=== PATIENT | female | born 2000 | race Hispanic/Latino ===

== ENCOUNTER 2025-02-17 00:15 | Emergency (ER) | payer SELFPAY ==
--- OUTSIDE RECORDS SUMMARY | 2025-02-17 00:18 | XMS REPORT | Continuity of Care Document ---
Author Name Unknown Address [address] [place] [address] [facility] Address 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 Ordering Clinician Indication Dosage Frequency Signature (SIG) Comments Components Source cyclobenzap rine 5 mg tablet 01-14 00:00: 00 Yes 1mg Evgeny Munson prednisone 50 mg tablet 01-14 00:00: 00 Yes 1mg Evgeny F Arpit diclofenac potassium 50 mg tablet 01-14 00:00: 00 Yes 1mg Evgeny Munson Vital Signs Vital Name Observation Time Observation Value Comments S ource Body Temperature 2025-01-14 17:19:00 98.20 degrees Evgeny Munson Heart Rate 2025-01-14 17:19:00 80.00 /min Gabriella en F Arpit Respiratory Rate 2025-01-14 17:19:00 18.00 /min Evgeny Munson BP Systolic 2025-01-14 17:19:00 114 mm[Hg] Step hen F Arpit BP Diastolic 2025-01-14 17:19:00 73 mm[Hg] [place] phen F Arpit Weight Measured 2025-01-14 17:19:00 133.00 pounds Evgeny F Arpit Height Measured 2025-01-14 17:19:00 59.00 inches Evgeny F Arpit BP Systolic 2023-04-05 15:32:00 106 mm[Hg] Step hen F Arpit BP Diastolic 2023-04-05 15:32:00 67 mm[Hg] [place] phen F Arpit Weight Measured 2023-04-05 15:32:00 135.00 pounds Evgeny Munson Height Measured 2023-04-05 15:32:00 59.00 inches Evgeny Munson Body Temperature 2023-04-05 15:32:00 98.20 degrees Evgeny Munson Heart Rate 2023-04-05 15:32:00 71.00 /min Gabriella en F Arpit Respiratory Rate 2023-04-05 15:32:00 19.00 /min Evgeny Munson BP Systolic 2023-03-29 16:02:00 114 mm[Hg] Step hen Gaston Munson BP Diastolic 2023-03-29 16:02:00 69 mm[Hg] [place] phen Gaston Munson Weight Measured 2023-03-29 16:02:00 135.00 pounds Evgeny Munson Height Measured 2023-03-29 16:02:00 59.00 inches Evgeny Munson Body Temperature 2023-03-29 16:02:00 98.30 degrees Evgeny Munson Heart Rate 2023-03-29 16:02:00 73.00 /min Gabriella en Gaston Munson Respiratory Rate 2023-03-29 16:02:00 19.00 /min Evgeny Munson Encounters Start Date/Time End Date/Time Encounter Type Admission Type Attending [facility] Care Department Encounter ID Source 2025-01-14 17:14:27 2025-01-14 17:14:27 Outpatient [facility] [id number] Evgeny Munson 2025-01-14 00:00:00 2025-01-14 00:00:00 Outpatient Visit [facility] [id number] Evgeny Munson 2023-04-05 15:18:14 2023-04-05 15:18:14 Outpatient [facility] [id number] Evgeny Munson 2023-03-29 15:54:16 2023-03-29 15:54:16 Outpatient [facility] [id number] Evgeny Munson Notes Date/Time Note Provider Source Evgeny Feldman. [facility]
[2025-02-17] MEDS ORDERED: FENTANYL CITR 100 MCG/2 ML ONE (00:55)
[2025-02-17] MEDS ORDERED: ONDANSETRON 4 MG/2 ML VIAL ONE (00:55)
[2025-02-17] MEDS ORDERED: NA CHLORIDE 0.9% 1,000 ML ONE (00:55)
[2025-02-17 01:26] LABS: Absolute Lymphocytes (CBC) 3.6 K/uL (0.7-4.9); Hematocrit 30.9 % (36.0-45.0); Hemoglobin 9.8 g/dL (12.0-15.0); MCH 20.7 pg (27.0-35.0); MCHC 31.6 g/dL (32.0-36.0); MCV 65.6 fL (80-100); MPV 9.4 fL (7.6-11.3); Nucleated RBC Absolute Count 0.0 (0-0); Nucleated Red Blood Cells % 0.1 % (0-0); RBC Red Blood Cell Count 4.72 M/uL (3.86-4.86); White Blood Count 8.10 thou/uL (4.3-10.9)
[2025-02-17 01:33] LABS: ALT/SGPT 46.0 U/L (13-56); AST/SGOT 27.0 U/L (15-37); Albumin 3.5 g/dL (3.4-5.0); Albumin/Globulin Ratio 0.8 (1.1-1.8); Alkaline Phosphatase 85.0 U/L (45-117); Anion Gap 6.9 mEq/L (5.0-15.0); BUN Blood Urea Nitrogen 12.0 mg/dL (7-18); Globulin 4.6 g/dL (2.3-3.5); Glucose Level 105.0 mg/dL (74-106); Lipase 39.0 U/L (13-75); Potassium 3.9 mEq/L (3.5-5.1)
[2025-02-17 01:38] LABS: Sqamous Epithelial <5 /HPF (None Seen); Urine Culture Reflex Order NOT NEEDED; Urine Microscopic Reflex YN ORDER UMIC
[2025-02-17 02:17] LABS: Blood Morphology Comment NOTED (NOT SEEN); Microcytosis 1+; White Blood Cell Scan OK (OK)
--- NOTE | 2025-02-17 03:51 | RAD REPORT ---
EXAM DESCRIPTION: Abdomen Pelvis W Contrast CLINICAL HISTORY: ABD PAIN COMPARISON: None Available. TECHNIQUE: CT of the abdomen and pelvis performed following the administration of IV contrast. No ora l contrast. This exam was performed according to our departmental dose-optimization program, which includes automated exposure control, adjustment of the mA and/or kV according to patient size and/or use of iterative reconstruction technique. FINDINGS: Lung Bases: The visualized lung bases are clear. Abdomen: Liver: The liver has normal contour and density. No suspicious mass. Gallbladder: No calcified gallstones. No significant biliary dilatation. Spleen, Pancreas, and Adrenal Glands: The spleen, pancreas, and adrenal glands are unremarkable. Kidneys: No suspicious mass. No urinary tract calculi. No hydronephrosis. Vasculature: The aorta and IVC have normal caliber and position. The portal vein is patent. Stomach: The stomach and duodenum have normal course. Pelvis: Bowel: No dilated loops of large or small bowel. No significant acute inflammatory changes. Appendix: Normal appendix. Bladder: Under distended. Reproductive: No suspicious mass. Other: No free intraperitoneal air. No free fluid or lymphadenopathy. Bones: No destructive bone lesions identified. IMPRESSION: No acute abnormality on CT of the abdomen and pelvis. Electronically signed by: Jacqueline Maciel MD 02/17/2025 03:48 AM CDT RP Due to temporary technical issues with the [employer] reporting system, reports are being jeana d by the in-house radiologist without review as a courtesy to ensure prompt reporting the interpreting radiologist is fully responsible for the content of the report. Transcribed Date/Time: 02/17/2025 3:51 AM
--- NOTE | 2025-02-17 04:03 | ER ---
Nurse's Notes [facility] Name: Kaity Smallwood Age: 24 yrs Sex: Female : 2000 Arrival Date: 02/17/2025 Time: 00:15 Bed 8 Private MD: Diagnosis: Lower abdominal pain, unspecified Presentation: 02/17 00:30 Chief complaint: Patient states: RIGHT LOWER ABDOMINAL PAIN SINCE YESTERDAY, BLOODY ha1 STOOLS TODAY, STOMACH DISTENTION. HAVE BEEN TAKING IBUPROFEN FOR OVER TWO WEEKS. 00:30 Coronavirus screen: Client denies travel out of the [place] in the last 14 days. Ebola ha1 Screen: No symptoms or risks identified at this time. Initial Sepsis Screen: Does the patient meet any 2 criteria? No. Patient's initial sepsis screen is negative. Does the patient have a suspected source of infection? No. Patient's initial sepsis screen is negative. Risk Assessment: Do you want to hurt yourself or someone else? Patient reports no desire to harm self or others. Onset of symptoms was February 17, 2025. 00:30 Method Of Arrival: Ambulatory ha1 00:30 Acuity: YONNY 3 ha1 Triage Assessment: 00:47 General: Appears uncomfortable, Behavior is calm, cooperative. Pain: Complains of pain ha1 in right lower quadrant Pain currently is 8 out of 10 on a pain scale. Quality of pain is described as aching. Neuro: Level of Consciousness is awake, alert, obeys commands, Oriented to person, place, time, situation. Cardiovascular: Patient's skin is warm and dry. Respiratory: Airway is patent Respiratory effort is even, unlabored, Respiratory pattern is regular, symmetrical. GI: Abdomen is round non-distended, Reports lower abdominal pain, bloody stool, nausea. Historical: - Allergies: 00:47 No Known Allergies; ha1 - PMHx: 00:47 None; ha1 - Immunization history:: Adult Immunizations up to date. - Infectious Disease History:: Denies. - Social history:: Smoking status: Patient denies any tobacco usage or history of. Screenin:08 [facility] ED Fall Risk Assessment (Adult) History of falling in the last 3 months, kd3 including since admission No falls in past 3 months (0 pts) Confusion or Disorientation No (0 pts) Intoxicated or Sedated No (0 pts) Impaired Gait No (0 pts) Mobility Assist Device Used No (0 pt) Altered Elimination No (0 pt) Score/Fall Risk Level 0 - 2 = Low Risk Maintained a safe environment. Abuse screen: Denies threats or abuse. Denies injuries from another. Nutritional screening: No deficits noted. Tuberculosis screening: No symptoms or risk factors identified. Assessment: 04:07 General: Appears in no apparent distress. Behavior is calm, cooperative. Neuro: Level kd3 of Consciousness is awake, alert, obeys commands, Oriented to person, place, time, situation. Cardiovascular: Capillary refill < 3 seconds Patient's skin is warm and dry. Respiratory: Airway is patent Trachea midline Respiratory effort is even, unlabored, Respiratory pattern is regular, symmetrical. Vital Signs: 00:30 BP 116 / 70; Pulse 74; Resp 18 S; Temp 98.3(O); Pulse Ox 100% on R/A; Weight 61.23 kg; ha1 Height 5 ft. 2 in. ; Pain 8/10; 04:07 BP 116 / 69; Pulse 77; Resp 19; Pulse Ox 98% on R/A; kd3 00:30 Body Mass Index 24.69 (61.23 kg, 157.48 cm) ha1 00:30 Pain Scale: Adult ha1 ED Course: 00:20 Patient arrived in ED. im 00:23 Kira Briggs PA-C is PHCP. sb4 00:23 Jhonathan Boudreaux MD is Attending Physician. sb4 00:47 Triage completed. ha1 00:59 Inserted saline lock: 22 gauge in left antecubital area, using aseptic technique. Blood oe collected. Flushed with 10 mL NS. 01:01 Vidya Thomas, RN is Primary Nurse. kd3 01:12 UA Rfx Rodger Cult if indicated Sent. ss12 02:01 CT Abd/Pelvis - IV Contrast Only In Process Unspecified. EDMS 04:08 No provider procedures requiring assistance completed. IV discontinued, intact, kd3 bleeding controlled, No redness/swelling at site. Pressure dressing applied. 04:08 Arm band placed on right wrist. kd3 04:08 Patient has correct armband on for positive identification. Provided Education on: kd3 discontinue ibuprofen use . Administered Medications: 01:05 Drug: NS 0.9% IV 1000 ml IV at 1 bolus Per protocol; to be given as a bolus over 60 kd3 minutes Route: IV; Rate: 1 bolus; Site: right antecubital; 04:09 Follow up: IV Status: Completed infusion; IV Intake: 250ml kd3 01:06 Drug: Ondansetron IVP 4 mg IVP once; over 2 minutes Route: IVP; Site: right antecubital;kd3 04:09 Follow up: Response: No adverse reaction kd3 01:06 Drug: fentaNYL (PF) IVP 25 mcg IVP once Route: IVP; Site: right antecubital; kd3 04:09 Follow up: Response: No adverse reaction; Pain is decreased kd3 Medication: 04:09 VIS not applicable for this client. kd3 Intake: 04:09 IV: 250ml; Total: 250ml. kd3 Outcome: 04:02 Discharge ordered by . sb4 04:08 Discharged to home ambulatory, kd3 04:08 Condition: stable 04:08 Discharge instructions given to patient, Instructed on discharge instructions, follow up and referral plans. Demonstrated understanding of instructions, follow-up care, 04:09 Patient left the ED. kd3 Signatures: Dispatcher [employer] EDMS Emmanuel Balbuena Kyli RN RN kd3 Lillian Danielson RN RN ha1 Kira Briggs PA-C PAShima sb4 Ariela Lee Shamaila RN RN ss12
--- NOTE | 2025-02-17 04:03 | EDPHYS ---
Physician Documentation [facility] Name: Kaity Smallwood Age: 24 yrs Sex: Female : 2000 Arrival Date: 02/17/2025 Time: 00:15 Bed 8 Private MD: ED Physician Jhonathan Boudreaux HPI: 02/17 03:44 This 24 yrs old Female presents to ER via Ambulatory with complaints of Bloody sb4 Stools. 03:44 This 24 yrs old Female presents to ER via Ambulatory with complaints of sb4 abdominal pain. 03:44 Patient reports lower abdominal pain, cramping and bloating that began today. States sb4 that earlier today she had a bowel movement that had blood in it. Endorses nausea but no vomiting. Denies any prior incidences of this. Denies any menstrual abnormalities or urinary symptoms. No reported history of hemorrhoids. Historical: - Allergies: 00:47 No Known Allergies; ha1 - PMHx: 00:47 None; ha1 - Immunization history:: Adult Immunizations up to date. - Infectious Disease History:: Denies. - Social history:: Smoking status: Patient denies any tobacco usage or history of. ROS: 03:44 Constitutional: Negative for fever, chills, and weight loss, sb4 03:44 Abdomen/GI: Positive for abdominal pain, nausea, per HPI, 03:44 All other systems are negative, Exam: 03:44 Constitutional: This is a well developed, well nourished patient who is awake, alert, sb4 and in no acute distress. Head/Face: Normocephalic, atraumatic. Eyes: Extra-ocular motions intact. Periorbital areas with no swelling, redness, or edema. ENT: Mucous membranes moist. Cardiovascular: Regular rate and rhythm with a normal S1 and S2. Respiratory: No increased work of breathing, no retractions or nasal flaring. Abdomen/GI: Soft, non-tender, no distension. Skin: Warm, dry with normal turgor. Normal color with no rashes, no lesions, and no evidence of cellulitis. Vital Signs: 00:30 BP 116 / 70; Pulse 74; Resp 18 S; Temp 98.3(O); Pulse Ox 100% on R/A; Weight 61.23 kg; ha1 Height 5 ft. 2 in. ; Pain 8/10; 04:07 BP 116 / 69; Pulse 77; Resp 19; Pulse Ox 98% on R/A; kd3 00:30 Body Mass Index 24.69 (61.23 kg, 157.48 cm) ha1 00:30 Pain Scale: Adult ha1 MDM: 00:24 Medical Screening Exam initiated sb4 03:45 Differential diagnosis: colitis, UTI, hemorrhoids, appendicitis. sb4 04:01 Data reviewed: vital signs, nurses notes, lab test result(s), radiologic studies, and sb4 as a result, I will admit patient. Counseling: I had a detailed discussion with the patient and/or guardian regarding the historical points, exam findings, and any diagnostic results supporting the discharge/admit diagnosis, lab results, radiology results, the need for outpatient follow up, for definitive care, to return to the emergency department if symptoms worsen or persist or if there are any questions or concerns that arise at home. Special discussion: Based on the patient's Hx, exam, and Dx evaluation, there is no indication for emergent surgery or inpatient Tx. It is understood by the patient/guardian that if the Sx's persist or worsen they need to return immediately for re-evaluation. 04:03 ED course: Patient has only had 1 episode of blood in her stool. Has not had any sb4 further episodes since arrival. Her pain is also improved. Workup is unremarkable. She does have slight iron deficiency anemia, I do not suspect that is secondary to acute blood loss. No elevation in her BUN. Advised to discontinue ibuprofen and take Tylenol instead for her pain. Encouraged lots of p.o. fluids and a gentle diet over the next few days. instructed to return to the ED if she continues to have blood in her bowel movements or if her pain returns. She understands. 02/17 00:54 Order name: CBC with Diff; Complete Time: 02:18 sb4 02/17 00:54 Order name: CMP; Complete Time: :37 sb4 02/17 00:54 Order name: Lipase; Complete Time: :37 sb4 02/17 00:54 Order name: Test, Urine; Complete Time: 01:39 sb4 02/17 00:54 Order name: UA Rfx Rodger Cult if indicated; Complete Time: :39 sb4 02/17 01:30 Order name: CBC Smear Scan; Complete Time: 02:18 EDMS 02/17 00:54 Order name: CT Abd/Pelvis - IV Contrast Only sb4 02/17 00:54 Order name: IV Saline Lock; Complete Time: 01:00 sb4 02/17 00:54 Order name: Labs collected and sent; Complete Time: 01:00 sb4 Administered Medications: 01:05 Drug: NS 0.9% IV 1000 ml IV at 1 bolus Per protocol; to be given as a bolus over 60 kd3 minutes Route: IV; Rate: 1 bolus; Site: right antecubital; 04:09 Follow up: IV Status: Completed infusion; IV Intake: 250ml kd3 01:06 Drug: Ondansetron IVP 4 mg IVP once; over 2 minutes Route: IVP; Site: right antecubital;kd3 04:09 Follow up: Response: No adverse reaction kd3 01:06 Drug: fentaNYL (PF) IVP 25 mcg IVP once Route: IVP; Site: right antecubital; kd3 04:09 Follow up: Response: No adverse reaction; Pain is decreased kd3 Disposition: 02/18 00:44 Co-signature as Attending Physician, Jhonathan Boudreaux MD I agree with the assessment sp4 and plan of care. I reviewed the patient's care provided by the Advanced Practice Provider and agree with the diagnosis and treatment plan. Disposition Summary: 02/17/25 04:02 Discharge Ordered Notes: Location: Home sb4 Problem: new sb4 Symptoms: have improved sb4 Condition: Stable sb4 Diagnosis - Lower abdominal pain, unspecified sb4 Followup: sb4 - With: Emergency Department - When: As needed - Reason: If symptoms return, Worsening of condition Discharge Instructions: - Discharge Summary Sheet sb4 - Anemia sb4 - Abdominal Pain, Adult, [id number] sb4 Forms: - Patient Portal Instructions sb4 - Leadership Thank You Letter sb4 Signatures: Dispatcher [facility] Vidya Penn RN RN kd3 Lillian Danielson RN RN ha1 Kira Briggs, PA-C PATashaC sb4 Jhonathan Boudreaux MD MD sp4 Corrections: (The following items were deleted from the chart) 02/17 00:54 00:54 CBC+H.LAB.BRZ ordered. EDMS EDMS 00:54 00:54 COMPREHENSIVE METABOLIC PANEL+C.LAB.BRZ ordered. EDMS EDMS 00:54 00:54 LIPASE+C.LAB.BRZ ordered. EDMS EDMS 00:54 00:54 Test, Urine+UC.LAB.BRZ ordered. EDMS EDMS 00:54 00:54 UA Rfx Rodger Cult if indicated+U.LAB.BRZ ordered. EDMS EDMS 00:54 00:54 Abdomen Pelvis W Con+CT.RAD.BRZ ordered. EDMS EDMS
[2025-02-17 09:06] VITALS: BP 116/70; TEMP 98.3; O2SAT 100
== END 2025-02-17 04:09 | disposition home or self-care (01) ==
LOC: ER 00:15
DX: R10.30 Lower abdominal pain, unspecified (principal)
CPT/HCPCS: 36415; 74177; 80053; 81001; 81025; 83690; 85025; 96361; 96374; 96375; 99284; J2405; J3010; J7030; Q9967